=== PATIENT | female | born 1965 | race Caucasian/White ===

== ENCOUNTER 2021-08-16 15:05 | Inpatient (IN) | payer MEDICARE, OTHER ==
[~2021-08-16] VITALS: Ht 152.4 cm; Wt 95.8 kg
[~2021-08-16 15:05] MED LIST: DOXYCYCLINE HY100 M2 PO; FLUOXETINE HCL40 MG PO; GABAPENTIN300 MG PO; HYDROCODON-ACE1 EAC6 PO; LAMICTAL200 MG PO; LIPITOR TAB 1010 MG PO; LITHIUM CARBON300 MG PO; OMNICEF 300 MG300 MG PO; PRIMIDONE50 MG PO; PROPRANOLOL HCL60 M1 PO; PROZAC 20 MG CA20 MG PO; ROPINIROLE HCL0.5 MG PO; SEROQUEL TAB 2525 MG PO; SYNTHROID137 MCG PO; VISTARIL25 MG PO
[2021-08-16 16:13] LABS: HEMOGLOBIN 8.5 gm/dl (12.3-15.3); RED BLOOD COUNT 2.7 M/UL (4.00-5.10); WHITE BLOOD COUNT 12.2 K/UL (4.5-11.0)
[2021-08-16 16:35] LABS: BUN/CREATININE RATIO 19 (0-10)
[2021-08-17 06:49] LABS: RED BLOOD COUNT 2.22 M/UL (4.00-5.10); WHITE BLOOD COUNT 8.5 K/UL (4.5-11.0)
[2021-08-17 06:51] LABS: HEMOGLOBIN 6.7 gm/dl (12.3-15.3)
[2021-08-17 07:21] LABS: BUN/CREATININE RATIO 18 (0-10)
[2021-08-17] MEDS ORDERED: BOOST PLUS237 ML PO (10:16)
[2021-08-17] MEDS ORDERED: PROTONIX 40 MG40 M1 PO (10:16)
[2021-08-17] MEDS ORDERED: NICODERM CQ1 EAC2 TD (10:17)
[2021-08-17] MEDS ORDERED: MIRALAX17 GM PO (10:17)
[2021-08-18 06:43] LABS: HEMOGLOBIN 7.9 gm/dl (12.3-15.3)
[2021-08-18 06:44] LABS: RED BLOOD COUNT 2.58 M/UL (4.00-5.10); WHITE BLOOD COUNT 13.9 K/UL (4.5-11.0)
[2021-08-18 07:50] LABS: BUN/CREATININE RATIO 14 (0-10)
[2021-08-19 03:29] LABS: HEMOGLOBIN 8.8 gm/dl (12.3-15.3); WHITE BLOOD COUNT 12.7 K/UL (4.5-11.0)
[2021-08-19 03:32] LABS: RED BLOOD COUNT 2.87 M/UL (4.00-5.10)
[2021-08-19 04:46] LABS: BUN/CREATININE RATIO 14 (0-10)
[2021-08-21 08:04] LABS: HEMOGLOBIN 9.2 gm/dl (12.3-15.3); RED BLOOD COUNT 2.96 M/UL (4.00-5.10)
[2021-08-21 08:09] LABS: WHITE BLOOD COUNT 7.8 K/UL (4.5-11.0)
[2021-08-21 08:22] LABS: BUN/CREATININE RATIO 10 (0-10)
[2021-08-22 06:24] LABS: HEMOGLOBIN 9.3 gm/dl (12.3-15.3); RED BLOOD COUNT 2.99 M/UL (4.00-5.10)
[2021-08-22 06:45] LABS: BUN/CREATININE RATIO 10 (0-10)
[2021-08-24 06:30] LABS: HEMOGLOBIN 9.2 gm/dl (12.3-15.3); RED BLOOD COUNT 2.94 M/UL (4.00-5.10); WHITE BLOOD COUNT 6.1 K/UL (4.5-11.0)
[2021-08-24 06:54] LABS: BUN/CREATININE RATIO 7 (0-10)
[2021-08-25] MEDS ORDERED: PROZAC 20 MG CA20 MG PO (11:54)
[2021-08-25] MEDS ORDERED: LEVOTHYROXINE125 MCG PO (11:54)
[2021-08-25] MEDS ORDERED: HYDROCODON-ACE1 EAC6 PO (11:54)
--- NOTE | 2021-08-25 15:14 | NUR ---
REPORT CALLED TO [facility] FOR [facility] AT 1453 REPORT CALLED TO [facility] AT [facility] IN [place].
--- NOTE | 2021-08-26 15:02 | NUR ---
TRIED CALLING REPORT AGAIN ON PT TO UPDATE NEW SHIFT TRIED THREE TIMES VM STATED DEMOCRAT IS NOT AVAILABLE AND YOUR CALL WILL BE DISCONNECTED, GOODBYE.
--- NOTE | 2021-08-26 15:54 | NUR ---
GAVE UPDATE TO SAME PERSON REPORT WAS GIVEN TO YESTERDAY AT [facility] IN [place].
== END 2021-08-26 16:20 | DRG 811 ==
LOC: ER1 15:05 → MED SURG 4 20:10 → CDU 20:10 → MED SURG 4 20:10
PROVIDERS: Emergency Medicine; Internal Medicine; ADMIT Internal Medicine
PROC: 30233N1 Transfusion of Nonautologous Red Blood Cells into Peripheral Vein, Percutaneous Approach (ICD-10-PCS; principal; 2021-08-17)
PROC: 0DB58ZX Excision of Esophagus, Via Natural or Artificial Opening Endoscopic, Diagnostic (ICD-10-PCS; 2021-08-18)
DX: D64.9 Anemia, unspecified (principal); G92.8 Other toxic encephalopathy; Z68.41 Body mass index [BMI] 40.0-44.9, adult; K21.9 Gastro-esophageal reflux disease without esophagitis; F41.9 Anxiety disorder, unspecified; J44.9 Chronic obstructive pulmonary disease, unspecified; J45.909 Unspecified asthma, uncomplicated; F31.9 Bipolar disorder, unspecified; R53.81 Other malaise; E87.6 Hypokalemia; T43.595A Adverse effect of other antipsychotics and neuroleptics, initial encounter; K22.89 Other specified disease of esophagus; E03.9 Hypothyroidism, unspecified; F17.200 Nicotine dependence, unspecified, uncomplicated; R13.10 Dysphagia, unspecified; D58.9 Hereditary hemolytic anemia, unspecified; Z90.49 Acquired absence of other specified parts of digestive tract; K21.00 Gastro-esophageal reflux disease with esophagitis, without bleeding; Z98.890 Other specified postprocedural states; Z86.718 Personal history of other venous thrombosis and embolism; Z81.8 Family history of other mental and behavioral disorders; Z90.710 Acquired absence of both cervix and uterus; E66.01 Morbid (severe) obesity due to excess calories; Z88.2 Allergy status to sulfonamides; Z88.8 Allergy status to other drugs, medicaments and biological substances
CPT/HCPCS: 36415; 71045; 73552; 80048; 80053; 80178; 81001; 82272; 82607; 82728; 82746; 83010; 83540; 83550; 83605; 83615; 83735; 84132; 84439; 84443; 85025; 85027; 85045; 85652; 86140; 86850; 86900; 86901; 86920; 87040; 92526; 92610; 93005; 93971; 94640; 94664; 94760; 97110-GP-CQ; 97116; 97162; 97166; 97530; 97530-GP-CQ; 99285; C9113; J2704; J7040; P9016; U0002